=== PATIENT | male | born 1995 | race African-American/Black ===

== ENCOUNTER 2017-06-26 08:13 | Emergency (ER) | payer OTHER ==
[~2017-06-26] VITALS: Ht 160 cm; Wt 59.0 kg
[~2017-06-26 08:13] MED LIST: DELSYM30 MG/5 ML PO; IBUPROFEN PO
[2017-06-26 09:08] LABS: URINE SOURCE CLEAN CATCH
[2017-06-26 09:22] LABS: URINE APPEARANCE CLOUDY; URINE BILIRUBIN NEG (NEG); URINE BLOOD NEG (NEG); URINE COLOR YELLOW; URINE GLUCOSE NEG (NEG); URINE KETONE NEG (NEG); URINE LEUKOCYTE ESTERASE 2+ (NEG); URINE NITRATE NEG (NEG); URINE PROTEIN NEG (NEG); URINE SPECIFIC GRAVITY 1.033 (1.003-1.035)
[2017-06-26 09:24] LABS: CULTURE INDICATED? YES; URBCS1 AUWI 0-2 /[HPF] (0-2); URINE BACTERIA AUWI NEG (NEGATIVE); URINE SQUAMOUS EPITHELIAL CELL OCC /[HPF]; UWBCS1 AUWI 50-100 (0-5)
[2017-06-26 09:37] LABS: URINE AMORPHOUS SEDIMENT AMORP PHOSPHATES; URINE YEAST PRESENT
[2017-06-30 00:04] LABS: CHLAMYDIA TRACH Detected (Not Detected); N GONOR Not Detected (Not Detected)
== END 2017-06-26 10:10 | disposition home or self-care (01) ==
LOC: CFTX 08:13 → CED 08:13 → CFTX 08:30 → CED 10:10
PROVIDERS: Nurse Practitioner
DX: N30.00 Acute cystitis without hematuria (principal); Z20.2 Contact with and (suspected) exposure to infections with a predominantly sexual mode of transmission; F17.200 Nicotine dependence, unspecified, uncomplicated
CPT/HCPCS: 81003; 87086; 87491; 87591; 96372; 99283; J0696